=== PATIENT | male | born 1980 | race Asian ===

== ENCOUNTER → 2016-10-24 | Outpatient (CLI) | payer OTHER | END | disposition home or self-care (01) | LOC: EMPHLTH 09:12 | PROVIDERS: ATTEND Internal Medicine | DX: R76.11 Nonspecific reaction to tuberculin skin test without active tuberculosis (principal) ==

== ENCOUNTER → 2018-11-26 | Outpatient (CLI) | payer OTHER | END | disposition home or self-care (01) | LOC: EMPHLTH 14:50 | PROVIDERS: ATTEND Internal Medicine | DX: Z02.1 Encounter for pre-employment examination (principal) | CPT/HCPCS: 86787 ==

== ENCOUNTER 2019-11-05 09:25 | Emergency (ER) | payer SELFPAY | END 2019-11-05 09:55 | disposition left against medical advice (07) | LOC: EMS 09:25 | DX: Z20.828 Contact with and (suspected) exposure to other viral communicable diseases (principal); Z88.2 Allergy status to sulfonamides ==

== ENCOUNTER 2019-12-16 16:44 | Emergency (ER) | payer OTHER, SELFPAY ==
[~2019-12-16] VITALS: Ht 167.6 cm; Wt 72.7 kg
[2019-12-16 16:54] VITALS: BP 132/81
== END 2019-12-16 17:16 | disposition home or self-care (01) ==
LOC: EMS 16:51
DX: R03.0 Elevated blood-pressure reading, without diagnosis of hypertension (principal); Z20.828 Contact with and (suspected) exposure to other viral communicable diseases; Z88.2 Allergy status to sulfonamides; Z90.49 Acquired absence of other specified parts of digestive tract
CPT/HCPCS: 87635

== ENCOUNTER → 2020-10-05 | Outpatient (CLI) | payer OTHER | END | disposition home or self-care (01) | LOC: RADPV 10:46 | PROVIDERS: ATTEND Internal Medicine | DX: R76.11 Nonspecific reaction to tuberculin skin test without active tuberculosis (principal) | CPT/HCPCS: 71045-TC ==

== ENCOUNTER 2021-08-02 06:33 | Emergency (ER) | payer OTHER ==
[~2021-08-02] VITALS: Ht 167.6 cm; Wt 70.0 kg
[2021-08-02 06:42] VITALS: BP 121/69
[2021-08-02 07:04] LABS: COVID AG,FIA SOURCE NASOPHARYNGEAL
== END 2021-08-02 07:44 | disposition home or self-care (01) ==
LOC: EMS 06:35
DX: R09.82 Postnasal drip (principal); Z88.2 Allergy status to sulfonamides; Z20.822 Contact with and (suspected) exposure to COVID-19
CPT/HCPCS: 87426; 99283; U0003

== ENCOUNTER 2021-08-08 14:01 | Emergency (ER) | payer OTHER ==
[~2021-08-08] VITALS: Ht 167.6 cm; Wt 81.8 kg
[2021-08-08 14:07] VITALS: BP 127/74
[2021-08-08 15:20] LABS: COVID AG,FIA SOURCE NASAL SWAB
[2021-08-08 15:48] LABS: RAPID GROUP A STREP NEGATIVE (NEGATIVE)
[2021-08-08 15:52] LABS: INFLUENZA TYPE A NEGATIVE FOR TYPE A (NEGATIVE); INFLUENZA TYPE B NEGATIVE FOR TYPE B (NEGATIVE)
== END 2021-08-08 16:35 | disposition home or self-care (01) ==
LOC: EMS 14:06
DX: J02.9 Acute pharyngitis, unspecified (principal); Z20.822 Contact with and (suspected) exposure to COVID-19; Z90.49 Acquired absence of other specified parts of digestive tract
CPT/HCPCS: 87426; 87430; 87804; 99283; U0003

== ENCOUNTER 2023-06-07 07:04 | Emergency (ER) | payer OTHER ==
[~2023-06-07] VITALS: Ht 167.6 cm; Wt 84.1 kg
[2023-06-07] MEDS ORDERED: NAPR220T57 PO (07:07)
[2023-06-07 07:16] LABS: COVID AG,FIA SOURCE NASAL SWAB
[2023-06-07 07:34] LABS: RAPID GROUP A STREP NEGATIVE (NEGATIVE)
[2023-06-07 07:39] LABS: INFLUENZA TYPE A NEGATIVE FOR TYPE A (NEGATIVE); INFLUENZA TYPE B NEGATIVE FOR TYPE B (NEGATIVE)
[2023-06-07 07:40] LABS: SARS-COV2 (COVID) ANTIGEN,FIA Negative (Negative)
[2023-06-07 08:51] VITALS: BP 110/77; PULSE 64; RESP 16; TEMP 98
== END 2023-06-07 09:02 | disposition home or self-care (01) ==
LOC: EMS 07:05
DX: J06.9 Acute upper respiratory infection, unspecified (principal); Z90.49 Acquired absence of other specified parts of digestive tract; Z88.2 Allergy status to sulfonamides; Z20.822 Contact with and (suspected) exposure to COVID-19
CPT/HCPCS: 87430; 87804; 99283